=== PATIENT | male | born 1945 | race Caucasian/White ===

== ENCOUNTER 2018-05-26 20:54 | Observation (INO) ==
[2018-05-26] MEDS ORDERED: Bisacodyl 10 MG Supp RECTAL PRN (23:57)
[2018-05-26] MEDS ORDERED: Acetaminophen 325 MG Tablet PO PRN (23:57)
[2018-05-26] MEDS ORDERED: Temazepam 15 MG Capsule PO PRN (23:57)
[2018-05-27] MEDS: Sod Chloride 0.9% Inj 1,000 ML IV.CONT SCH ×2 (03:50→11:17)
[2018-05-27] MEDS ORDERED: Morphine Inj 4 MG/ML Vial IV.PUSH PRN (04:42)
[2018-05-27] MEDS ORDERED: Budesonide-Formoterol 160/4.5 MCG 6 GM Inhaler INH SCH (09:00)
[2018-05-27] MEDS ORDERED: Senna/Docusate Sodium 8.6/50 MG Tablet PO SCH (09:00)
[2018-05-27] MEDS ORDERED: amLODIPine 5 MG Tablet PO SCH (09:00)
[2018-05-27] MEDS ORDERED: guaiFENesin 600 MG ER Tablet PO SCH (09:00)
--- NOTE | 2018-05-27 11:11 | P.HPIM ---
History of Present Illness Service: [facility] Primary Care Physician: UNKNOWN Chief Complaint: Cough History of Present Illness: 73-year-old male with a medical history significant for hypertension, diabetes, hyperlipidemia, and kidney stones who presented to the hospital with pleuritic type chest pain. Patient started having upper respiratory symptoms about 2 weeks ago. He recently traveled to [place]. He admits to sick contact. He denies shortness of breath but reports a dry cough. He has been issue has been the pleuritic-type chest pain. This has significantly improved since he was given Aroda. He reports feeling 100 times better and is hoping to go home. Workup in the emergency room consistent with pneumonia. - Diagnosis (1) Pneumonia (2) Diabetes (3) Hypertension (4) Pleuritic chest pain Review of Systems All other systems reviewed negative except as stated [facility] - History History Provided By: Patient, Family Member - Medical History Medical History: Medical History (Last Reviewed 05/27/18 @ 10:54 by Elliot Romo MD) Diabetes High cholesterol Hypertension Kidney stones - Surgical History Surgical History: Surgical History (Last Updated 05/27/18 @ 10:54 by Elliot Romo MD) History of renal stent Hx of cataract surgery - Tobacco History Second Hand Smoke Exposure: No Tobacco Use In Past 30 Days: No Smoking Status: Former smoker - Alcohol History How Often Do You Have a Drink Containing Alcohol: 4 or more times a week - Substance Use History Substance History: No History of Abuse - Immunization History Tetanus Immunization: >5 Years Hx Influenza Vaccine This Season: Yes Medications and Allergies Active Medications: Active Medications Acetaminophen (Tylenol) 650 mg PO Q4H PRN PRN Reason: Temp > 100.4 Hydrocodone Bitart/Acetaminophen (Aroda 5/325) 1 tab PO Q4H PRN PRN Reason: PAIN 3-5 Last Admin: 05/27/18 09:46 Dose: 1 tab Al Hydroxide/Mg Hydroxide (Milk Of Magnesia Liq) 30 ml PO Q12H PRN PRN Reason: Mild Constipation Albuterol (Duoneb Neb (Prn)) 1 ampul NEB Q4HR NEB PRN PRN Reason: SOB/WHEEZING Amlodipine Besylate (Norvasc) 5 mg PO DAILY [facility] Last Admin: 05/27/18 08:48 Dose: 5 mg Bisacodyl (Dulcolax Supp) 10 mg RECTAL DAILY PRN PRN Reason: SEVERE CONSITIPATION Budesonide/Formoterol Fumarate (Symbicort 160/4.5 Mcg Inh) 2 puff INH BID [facility] Last Admin: 05/27/18 09:29 Dose: 2 puff Guaifenesin (Mucinex Er) 600 mg PO BID [facility] Last Admin: 05/27/18 08:47 Dose: 600 mg Azithromycin 500 mg/ Sodium (Chloride) 250 mls @ 250 mls/hr IV.SIG Q24H [facility] Ceftriaxone Sodium 1,000 mg/ (Sodium Chloride) 100 mls @ 200 mls/hr IV.SIG Q24H [facility] Sodium Chloride (Ns Inj) 1,000 mls @ 100 mls/hr IV.CONT .Q10H [facility] Last Admin: 05/27/18 03:50 Dose: 100 mls/hr Lactulose (Lactulose Liq) 30 ml PO DAILY PRN PRN Reason: SEVERE CONSITIPATION Morphine Sulfate (Morphine Inj) 2 mg IV.PUSH Q4H PRN PRN Reason: PAIN 6-10 Ondansetron HCl (Zofran Inj) 4 mg IV.PUSH Q6H PRN PRN Reason: NAUSEA OR VOMITING Senna/Docusate Sodium (Shakira-Colace) 1 tab PO BID [facility] Last Admin: 05/27/18 08:48 Dose: Not Given Sennosides (Senokot) 17.2 mg PO Q12H PRN PRN Reason: Moderate Constipation Temazepam (Restoril) 15 mg PO HS PRN PRN Reason: INSOMNIA Allergies Allergy/AdvReac Type Severity Reaction Status Date / Time No Known Allergies Allergy Unverified 05/26/18 21:01 Home Medications Medication Instructions Recorded Confirmed Type amlodipine 5 mg PO DAILY 05/26/18 05/27/18 History aspirin [Aspir-81] 81 mg PO DAILY 05/26/18 05/27/18 History cholecalciferol (vitamin D3) 1,000 unit PO DAILY 05/26/18 05/27/18 History [Vitamin D3] lorazepam 0.5 mg PO DAILY 05/26/18 05/27/18 History [id number] acid-lutein [Centrum 1 tab PO DAILY 05/26/18 05/27/18 History Silver] omega 1-kay-svy-fish oil [Fish Oil] 1 tab PO DAILY 05/26/18 05/26/18 History omeprazole 20 mg PO DAILY 05/26/18 05/27/18 History sertraline 50 mg PO DAILY 05/26/18 05/27/18 History simvastatin 20 mg PO QPM 05/26/18 05/27/18 History sitagliptin [Januvia] 100 mg PO DAILY 05/26/18 05/27/18 History Exam Vital signs: Vital Signs 05/27/18 03:30 05/27/18 07:32 Temperature 99 F 99.4 F Pulse Rate 93 H 104 H Respiratory Rate 20 20 Blood Pressure 154/88 H 132/77 Pulse Oximetry 96 93 L Intake & Output 05/26/18 05/27/18 05/27/18 18:59 06:59 18:59 Intake Total 120 / 120 Balance 120 / 120 Weight 97.4 kg Intake: Oral 120 / 120 Other: # Voids 1 Weight On Admission 97.5 kg Narrative: GENERAL: This is a well-nourished, well-developed patient, in no apparent distress. CARDIOVASCULAR: Normal rate and regular rhythm without murmurs, gallops, or rubs. RESPIRATORY: Good respiratory efforts. Breath sounds equal and clear to auscultation bilaterally. GASTROINTESTINAL: Abdomen soft, non-tender, non-distended. Normal active bowel sounds MUSCULOSKELETAL: Extremities without cyanosis, or edema. NEURO: Alert & Oriented x4 to person, place, time, situation. Moves all ext x4 PSYCH: Appropriate mood and affect. Caprini VTE Risk Assessment Caprini VTE Risk Assessment: No/Low Risk (score <= 1) Caprini Risk Assessment Model: Point Value = 1 Point Value = 2 Point Value = 3 Point Value = 5 Age 41-60 Minor surgery BMI > 25 kg/m2 Swollen legs Varicose veins or History of unexplained or recurrent spontaneous Oral contraceptives or hormone replacement Sepsis (< 1 month) Serious lung disease, including pneumonia (< 1 month) Abnormal pulmonary function Acute myocardial infarction Congestive heart failure (< 1 month) History of inflammatory bowel disease Medical patient at bed rest Age 61-74 Arthroscopic surgery Major open surgery (> 45 min) Laparoscopic surgery (> 45 min) Malignancy Confined to bed (> 72 hours) Immobilizing plaster cast Central venous access Age >= 75 History of VTE Family history of VTE Factor V Leiden Prothrombin [id number] Lupus anticoagulant Anticardiolipin antibodies Elevated serum homocysteine Heparin-induced thrombocytopenia Other congenital or acquired thrombophilia Stroke (< 1 month) Elective arthroplasty Hip, pelvis, or leg fracture Acute spinal cord injury (< 1 month) Prophylaxis Regimen: Total Risk Factor Score Risk Level Prophylaxis Regimen 0-1 Low Early ambulation 2 Moderate Order ONE of the following: *Sequential Compression Device (SCD) *Heparin 5000 units SQ BID 3-4 Higher Order ONE of the following medications: *Heparin 5000 units SQ TID *Enoxaparin/Lovenox 40 mg SQ daily (WT < 150 kg, CrCl > 30 mL/min) *Enoxaparin/Lovenox 30 mg SQ daily (WT < 150 kg, CrCl > 10-29 mL/min) *Enoxaparin/Lovenox 30 mg SQ BID (WT < 150 kg, CrCl > 30 mL/min) AND/OR *Sequential Compression Device (SCD) 5 or more Highest Order ONE of the following medications: *Heparin 5000 units SQ TID (Preferred with Epidurals) *Enoxaparin/Lovenox 40 mg SQ daily (WT < 150 kg, CrCl > 30 mL/min) *Enoxaparin/Lovenox 30 mg SQ daily (WT < 150 kg, CrCl > 10-29 mL/min) *Enoxaparin/Lovenox 30 mg SQ BID (WT < 150 kg, CrCl > 30 mL/min) AND *Sequential Compression Device (SCD) Assessment and Plan - Assessment (1) Pneumonia Code(s): J18.9 - Pneumonia, unspecified organism Status: Acute (2) Diabetes Code(s): E11.9 - Type 2 diabetes mellitus without complications Status: Acute (3) Hypertension Code(s): I10 - Essential (primary) hypertension Status: Acute (4) Pleuritic chest pain Code(s): R07.81 - Pleurodynia Status: Acute - Plan 73-year-old male with: Pneumonia: Right lower lobe - He looks relatively well and is significantly better since presentation to the ED. I think he can continue treatment outpatient. He received Rocephin and azithromycin. discharge on cefuroxime and azithromycin. Limited supply of Lortab for pleuritic type pain. E-force checked. Discussed incidental finding of liver hemangioma with the patient. Continue home medications for his chronic conditions. Discharge Planning: Discharge patient to home Condition on discharge: Improved Regular Diet as tolerated Ad Rosalind activity Rx written: Per med rec Follow-up with primary care physician H&P: Quality - VTE Deep Vein Thrombosis/Pulmonary Embolism Present on Admission: No (1) Pneumonia Qualifiers: Pneumonia type: due to unspecified organism Laterality: right Lung location : middle lobe of lung Qualified Code(s): J18.1 - Lobar pneumonia, unspecified organism
[2018-05-27] MEDS ORDERED: Azithromycin Inj 500 MG in Sodium Chlor 0.9% Inj 250 ML IV.SIG SCH (21:00)
[2018-05-29 20:24] VITALS: BP 135/74; PULSE 103; RESP 20; TEMP 99; O2SAT 92
== END 2018-05-27 13:46 | disposition home or self-care (01) ==
LOC: PH3 20:54 → PHEDDLT 20:54
PROVIDERS: ADMIT Family Medicine; ATTEND Family Medicine